=== PATIENT | male | born 1965 | race Caucasian/White ===

== ENCOUNTER → 2016-10-31 | Outpatient (REF) | LOC: M LAB 15:20 | PROVIDERS: ATTEND Nurse Practitioner Adult Health | DX: Z02.89 Encounter for other administrative examinations (principal) ==

== ENCOUNTER 2017-01-30 19:09 | Emergency (ER) | payer OTHER ==
[~2017-01-30] VITALS: Ht 172.7 cm; Wt 90.9 kg
[2017-01-30] MEDS ORDERED: PANT40TA2 PO (19:30)
[2017-01-30] MEDS ORDERED: HYDR25TAB PO (19:30)
[2017-01-30] MEDS ORDERED: DULO1CAP3 PO (19:30)
[2017-01-30] MEDS ORDERED: ROPI0.25 PO (19:30)
[2017-01-30] MEDS ORDERED: ZOLP10TA2 PO (19:30)
[2017-01-30] MEDS ORDERED: SIMV40TA2 PO (19:30)
[2017-01-30] MEDS ORDERED: marijuana (19:30)
[2017-01-30] MEDS: LORazepam 1 MG TAB PO STA (20:25)
[2017-01-30 20:31] LABS: BASO % 0.3 % (0.0-1.0); EOS # 0.1 K/mm3 (0.0-0.50); EOS % 1.7 % (0.0-3.0); LARGE UNSTAINED CELL # 0.2 K/mm3 (0.0-0.4); LARGE UNSTAINED CELL % 3.3 % (0.0-4.0); LYMPH # 3.4 K/mm3 (1.5-4.5); LYMPH % 45.3 % (24.0-44.0); MEAN CORPUSCULAR HEMOGLOBIN 32.2 pg (27.0-33.0); MEAN CORPUSCULAR VOLUME 89.3 fl (80.0-96.0); MONO # 0.4 K/mm3 (0.0-0.8); MONO % 6.1 % (0.0-5.0); NEUTROPHILS % 43.3 % (36.0-66.0); PLATELET COUNT, AUTOMATED 247 k/mm3 (150-450); RED CELL DISTRIBUTION WIDTH 12.8 % (11.5-14.5)
[2017-01-30 20:32] LABS: INR 0.89
[2017-01-30 20:35] LABS: ANION GAP 7 MEQ/L (8-16); BLOOD UREA NITROGEN 12 MG/DL (7-18); CALCIUM LEVEL 8.9 MG/DL (8.5-10.1); CARBON DIOXIDE LEVEL 30 MEQ/L (21-32); CHLORIDE LEVEL 101 MEQ/L (98-107); CREATININE FOR GFR 1.31 MG/DL (0.70-1.30); GLOMERULAR FILTRATION RATE > 60.0 (>60); GLUCOSE, FASTING 157 MG/DL (70-105); POTASSIUM SERUM 3.1 MEQ/L (3.5-5.1); SODIUM LEVEL 138 MEQ/L (136-145)
--- NOTE | 2017-01-30 21:50 | REPUSA ---
CT of the head Clinical history: altered level of consciousness. Technique: Multiple axial CT images were obtained through the head without administration of contrast . Comparison: 07/11/2016. Findings: The ventricles and sulci are symmetric bilaterally. There is no evidence of acute hemorrhag e or infarct. There is no midline shift, mass effect, or extra-axial fluid collection. The osseous st ructures are unremarkable. The visualized paranasal sinuses and mastoid air cells are clear. Impression: Negative study.
[2017-01-30] MEDS: POTASSIUM CHLORIDE 10 MEQ SR TABLET PO ONE (22:07)
[2017-01-30] MEDS ORDERED: KLON0.5T PO (23:21)
[2017-01-30 23:24] VITALS: BP 147/67
--- NOTE | 2017-02-01 05:52 | ECGEPIP ---
Stationary ECG Study [facility] - ED Test Date: 2017-01-30 Pat Name: ANGIE CRISTOBAL Department: Room: - Gender: M Scaffolder: nikole : 1965 Requested By: MANA SIERRA Order Number: [id number] Reading MD: Tay Foley Measurements Intervals [place] Rate: 78 P: 29 TX: 156 QRS: 52 QRSD: 109 T: 50 QT: 387 QTc: 443 Interpretive Statements [employer] RBBB NO PRIORS Electronically Signed On 02-01-2017 5:52:38 EDT by Tay Foley
== END 2017-01-30 23:43 | disposition home or self-care (01) ==
LOC: EDBD 19:09 → M ED 20:43
DX: F41.1 Generalized anxiety disorder (principal); I10 Essential (primary) hypertension; E78.4 Other hyperlipidemia; F32.9 Major depressive disorder, single episode, unspecified; K21.9 Gastro-esophageal reflux disease without esophagitis; Z87.891 Personal history of nicotine dependence
CPT/HCPCS: 36415; 70450; 80048; 85025; 85610; 85730; 93005; 99284; G0480

== ENCOUNTER 2023-04-10 07:33 | Day surgery (SDC) | payer OTHER ==
[~2023-04-10] VITALS: Ht 167.6 cm; Wt 96.2 kg
[~2023-04-10 07:33] MED LIST: DULO1CAP6 PO; HYDR-3490 PO; KLON0.5T PO; PANT40TA29 PO; ROPI5TAB19 PO; SIMV40TA20 PO; ZOLP10TA2 PO; marijuana
[2023-04-10] MEDS ORDERED: LIDOCAINE 2% 100MG/5ML SDV (FOR ANES.) As Ordered ONE (08:41)
[2023-04-10] MEDS ORDERED: propofoL 200 MG/20 ML VIAL As Ordered ONE ×2 (08:41→09:06)
[2023-04-10] MEDS ORDERED: fentaNYL 100 MCG/2 ML INJECTION As Ordered ONE (08:42)
[2023-04-10 09:30] VITALS: TEMP 97.6
[2023-04-10] MEDS: **hydrALAZINE** 10 MG TAB PO ONE ×2 (10:22→10:30)
[2023-04-10 10:30] VITALS: BP 213/108
[2023-04-10 11:20] VITALS: BP 139/70; O2SAT 100
== END 2023-04-10 11:22 | disposition home or self-care (01) ==
LOC: M OPP 07:33
PROVIDERS: ATTEND Internal Medicine Gastroenterology
DX: Z12.11 Encounter for screening for malignant neoplasm of colon (principal); Z86.010 Personal history of colon polyps; D12.6 Benign neoplasm of colon, unspecified; K64.0 First degree hemorrhoids; K57.30 Diverticulosis of large intestine without perforation or abscess without bleeding; K22.89 Other specified disease of esophagus; K44.9 Diaphragmatic hernia without obstruction or gangrene; F17.290 Nicotine dependence, other tobacco product, uncomplicated; Z79.02 Long term (current) use of antithrombotics/antiplatelets; Z79.1 Long term (current) use of non-steroidal anti-inflammatories (NSAID)
CPT/HCPCS: 43239; 45385; 88305; J3010